=== PATIENT | female | born 2000 | race Caucasian/White ===

== ENCOUNTER 2020-12-13 12:12 | Inpatient (IN) | payer OTHER ==
[~2020-12-13] VITALS: Ht 154.4 cm; Wt 62.3 kg
[2020-12-13] MEDS ORDERED: OxyCODONE HCL/ACETAMINOPHEN 5-325 MG TABLET PO ONE ×2 (16:00→20:00)
[2020-12-13 17:13] LABS: COVID AG,FIA SOURCE NASAL SWAB
[2020-12-13] MEDS ORDERED: OxyCODONE HCL/ACETAMINOPHEN 5-325 MG TABLET PO PRN (20:45)
[2020-12-13] MEDS ORDERED: ONDANSETRON HCL 4 MG/2 ML VIAL IVP PRN ×2 (20:45→21:00)
[2020-12-13] MEDS ORDERED: ACETAMINOPHEN 325 MG TABLET PO PRN (20:45)
[2020-12-13 20:48] LABS: BASOPHILS % (AUTO) 0.2 % (0.0-2.0); EOSINOPHILS % (AUTO) 0.1 % (1.0-6.0); HEMATOCRIT 37.4 % (36-46); HEMOGLOBIN 12.5 g/dL (12.0-16.0); LYMPHOCYTES # (AUTO) 2.2 K/uL (1.0-4.8); MEAN CORPUSCULAR HGB CONC 33.3 G/dL (31.0-37.0); MEAN CORPUSCULAR VOLUME 90 fL (80-100); MONOCYTES # (AUTO) 1.1 K/uL (0.1-1.0); MONOCYTES % (AUTO) 9.3 % (2.0-9.0); NEUTROPHILS # (AUTO) 8.9 K/uL (1.8-7.7); NEUTROPHILS % (AUTO) 72.4 % (40.0-70.0); PLATELET COUNT (AUTO) 285 K/uL (150-450); RED BLOOD CELL COUNT(AUTO) 4.16 MIL/uL (4.00-5.20); RED CELL DISTRIBUTION WIDTH 13.3 % (11.5-14.5)
[2020-12-13 21:00] LABS: ANION GAP 12 mmol/L (8-16); CALCIUM, TOTAL 8.5 mg/dL (8.8-10.5); CARBON DIOXIDE 25 mmol/L (22-29); CHLORIDE 103 mmol/L (98-107); CREATININE 0.71 mg/dL (0.60-1.30); GLOMERULAR FILTR. RATE CALC > 60 mL/min (>60); GLUCOSE,RANDOM 103 mg/dL (70-110); POTASSIUM 3.7 mmol/L (3.5-5.1); SODIUM SERUM 140 mmol/L (136-145); UREA NITROGEN, BLOOD 9 mg/dL (7-18)
[2020-12-13] MEDS ORDERED: DOCUSATE SODIUM 100 MG CAPSULE PO PRN (21:00)
[2020-12-13] MEDS ORDERED: RINGERS SOLUTION,LACTATED 1,000 ML IV ONE (21:00)
[2020-12-13] MEDS ORDERED: KETOROLAC TROMETHAMINE 15 MG/ML VIAL IVP PRN (21:00)
[2020-12-13] MEDS ORDERED: ACETAMINOPHEN 500 MG TABLET PO PRN (21:00)
[2020-12-13] MEDS ORDERED: DOCUSATE SODIUM 100 MG CAPSULE PO SCH (21:00)
[2020-12-13 21:05] LABS: ALANINE AMINOTRANSFERASE 54 U/L (12-78); ALBUMIN 3.9 g/dL (3.4-5.0); ALKALINE PHOSPHATASE 92 U/L (46-116); ASPARTATE AMINOTRANSFERASE 64 U/L (15-37); BILIRUBIN,TOTAL 1.6 mg/dL (0.1-1.0)
[2020-12-13] MEDS: HEPARIN SODIUM,PORCINE 5,000 UNITS/ML VIAL SQ SCH (21:46)
[2020-12-13] MEDS: MORPHINE SULFATE 2 MG/ML SYRINGE IVP PRN (22:08)
[2020-12-14] MEDS ORDERED: ENOXAPARIN SODIUM 40 MG/0.4 ML PF SYRINGE SQ SCH (09:00)
[2020-12-14 09:15] VITALS: BP 113/62
[2020-12-14] MEDS: MORPHINE SULFATE 2 MG/ML SYRINGE IVP PRN ×2 (09:39→15:30)
[2020-12-14] MEDS: HEPARIN SODIUM,PORCINE 5,000 UNITS/ML VIAL SQ SCH ×3 (09:40→19:56)
[2020-12-14 15:41] VITALS: BP 111/68
[2020-12-14 19:44] VITALS: BP 98/53
[2020-12-15 05:24] VITALS: BP 115/70
[2020-12-15 07:21] VITALS: BP 98/61
[2020-12-15] MEDS: HEPARIN SODIUM,PORCINE 5,000 UNITS/ML VIAL SQ SCH ×3 (08:13→20:40)
[2020-12-15 10:56] LABS: BASOPHILS % (AUTO) 0.6 % (0.0-2.0); EOSINOPHILS % (AUTO) 1.3 % (1.0-6.0); HEMOGLOBIN 11.5 g/dL (12.0-16.0); LYMPHOCYTES # (AUTO) 1.9 K/uL (1.0-4.8); LYMPHOCYTES % (AUTO) 18.4 % (22.0-44.0); MEAN CORPUSCULAR HEMOGLOBIN 30.5 pg (26.0-34.0); MEAN CORPUSCULAR HGB CONC 33.8 G/dL (31.0-37.0); MEAN CORPUSCULAR VOLUME 90 fL (80-100); MONOCYTES # (AUTO) 0.9 K/uL (0.1-1.0); MONOCYTES % (AUTO) 8.6 % (2.0-9.0); NEUTROPHILS # (AUTO) 7.4 K/uL (1.8-7.7); NEUTROPHILS % (AUTO) 71.1 % (40.0-70.0); PLATELET COUNT (AUTO) 246 K/uL (150-450); RED BLOOD CELL COUNT(AUTO) 3.76 MIL/uL (4.00-5.20); RED CELL DISTRIBUTION WIDTH 13.3 % (11.5-14.5)
[2020-12-15 20:38] VITALS: BP 124/85
[2020-12-16 04:00] VITALS: BP 104/61
[2020-12-16 08:03] VITALS: BP 98/51
[2020-12-16] MEDS: HEPARIN SODIUM,PORCINE 5,000 UNITS/ML VIAL SQ SCH ×3 (08:39→20:43)
[2020-12-16 20:10] VITALS: BP 94/62
[2020-12-17 05:35] VITALS: BP 106/64
[2020-12-17] MEDS ORDERED: TraMADol HCL 50 MG TABLET PO PRN (06:45)
[2020-12-17 07:57] VITALS: BP_SYST 152; BP_SYST 97; BP_DIAS 51; BP_DIAS 84
[2020-12-17] MEDS: HEPARIN SODIUM,PORCINE 5,000 UNITS/ML VIAL SQ SCH ×3 (08:16→21:38)
[2020-12-17] MEDS ORDERED: SODIUM CHLORIDE 0.9% 1,000 ML ONE (10:51)
[2020-12-17 20:52] VITALS: BP 90/53
[2020-12-18 04:05] VITALS: BP 106/59
[2020-12-18 07:29] VITALS: BP 108/60
[2020-12-18] MEDS: HEPARIN SODIUM,PORCINE 5,000 UNITS/ML VIAL SQ SCH ×3 (08:21→21:29)
[2020-12-18 15:26] VITALS: BP 134/77
[2020-12-18 16:07] VITALS: BP 96/59
[2020-12-18 19:35] VITALS: BP 108/65
[2020-12-19 04:24] VITALS: BP 107/54
[2020-12-19] MEDS: HEPARIN SODIUM,PORCINE 5,000 UNITS/ML VIAL SQ SCH ×3 (07:46→20:07)
[2020-12-19 08:18] VITALS: BP 91/58
[2020-12-19 20:07] VITALS: BP 104/63
[2020-12-20 05:00] VITALS: BP 99/51
[2020-12-20 07:46] VITALS: BP 113/59
[2020-12-20] MEDS: HEPARIN SODIUM,PORCINE 5,000 UNITS/ML VIAL SQ SCH ×3 (08:42→21:00)
[2020-12-20 15:34] VITALS: BP 116/61
[2020-12-20 19:30] VITALS: BP 105/55
[2020-12-21 05:10] VITALS: BP 104/63
[2020-12-21 07:37] VITALS: BP 96/58
[2020-12-21] MEDS: HEPARIN SODIUM,PORCINE 5,000 UNITS/ML VIAL SQ SCH (08:19)
[2020-12-21] MEDS ORDERED: TRAM50TA2 PO (13:35)
== END 2020-12-21 14:15 | DRG 563 ==
LOC: EMS 12:14 → 6S 12-14 05:34
PROVIDERS: ADMIT Internal Medicine; ATTEND Internal Medicine
DX: S82.142A Displaced bicondylar fracture of left tibia, initial encounter for closed fracture (principal); R65.10 Systemic inflammatory response syndrome (SIRS) of non-infectious origin without acute organ dysfunction; S92.001A Unspecified fracture of right calcaneus, initial encounter for closed fracture; R74.8 Abnormal levels of other serum enzymes; S93.402A Sprain of unspecified ligament of left ankle, initial encounter; Z20.822 Contact with and (suspected) exposure to COVID-19; W17.89XA Other fall from one level to another, initial encounter; Y93.89 Activity, other specified; Y92.89 Other specified places as the place of occurrence of the external cause; Y99.8 Other external cause status
CPT/HCPCS: 73700; 80048; 80076; 85025; 97110; 97162; 97165; 97530; 97535; 99285; J1644; J2270; J2405; J7030; J7120